=== PATIENT | male | born 1985 | race American Indian/Alaskan Native ===

== ENCOUNTER 2021-11-22 18:45 | Emergency (ER) | payer SELFPAY ==
[2021-11-22] MEDS ORDERED: ONDANSETRON 4 MG/2 ML INJ ONE (18:53)
[2021-11-22] MEDS ORDERED: fentaNYL 100 MCG/2 ML INJ ONE (18:53)
[2021-11-22] MEDS ORDERED: ONDANSETRON 4 MG/2 ML INJ IV ONE (18:54)
[2021-11-22] MEDS ORDERED: fentaNYL 100 MCG/2 ML INJ IV ONE (18:54)
--- NOTE | 2021-11-22 19:31 | Emergency Department Report ---
ED Animal Bite HPI - General Stated Complaint: ATTACKED BY DOGS Time Seen by Provider: 11/22/21 18:53 - History of Present Illness Initial Comments: Patient presents by private auto with his brother secondary to reports of dog bites. He states that he was behind a local grocery store went to pick balls "out of nowhere attacked him." He states that he did not see them coming. Patient is complaining of severe right arm pain. He has multiple small puncture wounds to both forearms. There are scratches and abrasions to both forearms. He states that these were done by pitbull's that attacked him out of the blue. He states that he tried to fight back, but "they won." His brother states that he was called with his brother being attacked" screaming on the phone." He was brought here by private auto for further evaluation. Patient has other in juries. He states that everything happened so quickly, he does not know really how everything played out. - Related Data Previous Rx's Medication Instructions Recorded Last Taken Type Ibuprofen [Motrin] 800 mg PO Q8HR PRN #30 tablet 11/22/21 Unknown Rx cephALEXin [Keflex] 500 mg PO Q8HR #21 cap 11/22/21 Unknown Rx ED Review of Systems ROS: Stated complaint: ATTACKED BY DOGS Other details as noted in HPI Comment: All other systems reviewed and negative Constitutional: no symptoms reported Eyes: eye pain (Right. He has a black eye currently) ENT: denies: throat pain Respiratory: denies: cough Cardiovascular: denies: chest pain Endocrine: denies: unexplained weight loss Gastrointestinal: denies: abdominal pain Genitourinary: denies: dysuria Musculoskeletal: denies: back pain Skin: denies: rash Neurological: denies: headache Hematological/Lymphatic: denies: easy bruising ED Past Medical Hx - Past Medical History Previous Medical History?: No - Family History Family history: no significant - Medications Home Medications: Home Medications Medication Instructions Recorded Confirmed Last Taken Type Ibuprofen [Motrin] 800 mg PO Q8HR PRN #30 tablet 11/22/21 Unknown Rx cephALEXin [Keflex] 500 mg PO Q8HR #21 cap 11/22/21 Unknown Rx ED Physical Exam - General Limitations: No Limitations, Other (Pulse ox noted and normal) General appearance: alert, in distress (Moderate) - Head Head exam: Present: other (Patient has right periorbital contusion with ecchymoses. Right eye is swollen shut. There are superficial abrasions to the right cheek, zygoma, mandible, and neck) - Eye Eye exam: Present: EOMI. Absent: scleral icterus - ENT ENT exam: Present: normal orophraynx, normal external ear exam - Neck Neck exam: Present: other (Superficial abrasions to the right lateral neck). Absent: tenderness, meningismus - Respiratory Respiratory exam: Present: normal lung sounds bilaterally. Absent: respiratory distress - Cardiovascular Cardiovascular Exam: Present: regular rate, normal rhythm - GI/Abdominal GI/Abdominal exam: Present: soft. Absent: distended, tenderness - Extremities Exam Extremities exam: Present: tenderness (Diffuse. There is a skin tear to the dorsum of the right mid forearm consistent with a bite), normal capillary refill, other (Patient has multiple puncture wounds to both forearms. Right is greater than left. There is edema to the right forearm. Patient has good radial pulses. There is no evidence of injury to the lower extremities.). Absent: calf tenderness - Back Exam Back exam: Absent: CVA tenderness (R), CVA tenderness (L) - Neurological Exam Neurological exam: Present: alert, oriented X3, CN II-XII intact, reflexes normal. Absent: motor sensory deficit - Psychiatric Psychiatric exam: Present: normal affect, normal mood - Skin Skin exam: Present: warm, dry ED Course - Reevaluation(s) Reevaluation #1: 11/22/21 19:27 Patient had been seen upon arrival. He was taken urgently to a room. He was undressed. IV was established. He was given analgesics and antibiotics. He was taken to x-ray. There is no evidence of thoracoabdominal injury. He has no altered mental status. He has no neurologic symptom or deficit that can be delineated. He has limited movement of the right arm secondary to pain at this time. Clinically, his wounds do not seem to fit with a dog attack. 11/22/21 19:31 Reevaluation #2: 11/22/21 20:38 CT and radiographs are noted. Wounds will be cleaned and the patient will be discharged. Tetanus booster was ordered. Reevaluation #3: 11/22/21 20:38 Patient had presented with reports of dog bites to both forearms. He had a contusion to the right periorbital area. He did not have any laceration that would warrant suture repair. Radiographically, there was no evidence of acute fracture. He did not have any obvious foreign bodies. He was treated symptomatically. He was placed on antibiotics empirically. He was given a tetanus booster. Patient was referred to primary care for follow-up. He only had 1 skin tear despite reporting being attacked by 2 pit bulls. Whether this was the case is somewhat hard to discern. Critical Care Time: No Critical care attestation.: If time is entered above; I have spent that time in minutes in the direct care of this critically ill patient, excluding procedure time. ED Disposition Clinical Impression: History of dog bite Abrasion of right forearm Qualifiers: Encounter type: initial encounter Qualified Code(s): S50.811A - Abrasion of right forearm, initial encounter Abrasion of left forearm Qualifiers: Encounter type: initial encounter Qualified Code(s): S50.812A - Abrasion of left forearm, initial encounter Facial abrasion Qualifiers: Encounter type: initial encounter Qualified Code(s): S00.81XA - Abrasion of other part of head, initial encounter Neck abrasion Qualifiers: Encounter type: initial encounter Qualified Code(s): S10.91XA - Abrasion of unspecified part of neck, initial encounter Periorbital contusion of right eye Qualifiers: Encounter type: initial encounter Qualified Code(s): S05.11XA - Contusion of eyeball and orbital tissues, right eye, initial encounter Disposition: 01 HOME / SELF CARE / HOMELESS Is pt being admited?: No Condition: Stable Instructions: How to Use Cold Therapy, [id number], Eye Contusion, [id number], Wound Care, Adult, Abrasion, [id number] Additional Instructions: Ice and elevate the arms. Keep the wounds clean. Return for problems. Take the antibiotics. Follow-up with your family doctor or the referral doctor for recheck. Prescriptions: cephALEXin [Keflex] 500 mg PO Q8HR #21 cap Ibuprofen [Motrin] 800 mg PO Q8HR PRN #30 tablet PRN Reason: Pain , Severe (7-10) Referrals: PRIMARY MD CASSIE [Referring] - 3-5 Days MARICHUY HERNANDES MD [Staff Physician] - 3-5 Days
--- NOTE | 2021-11-22 19:38 | Cat Scan Report ---
CT MAXILLOFACIAL WITHOUT CONTRAST INDICATION / CLINICAL INFORMATION: trauma. TECHNIQUE: All CT scans at this location are performed using CT dose reduction for ALARA by means of automated e xposure control. COMPARISON: None available. FINDINGS: FACIAL BONES: There is prominent right periorbital soft tissue hematoma. However, there is no clear C T evidence of acute fracture of the facial bones. The orbital busch, sinuses and zygomatic arches stephanie ear intact. The paranasal sinuses are pneumatized without air-fluid levels. PARANASAL SINUSES: There is mild deviation of the nasal septum toward the left. The mastoid air cells are also clear. ORBITS: The optic globes appear to demonstrate appropriate size and configuration. No significant pos t septal inflammatory changes are identified. ADDITIONAL FINDINGS: None. IMPRESSION: 1. There is notable right periorbital hematoma without clear CT evidence of acute fracture of the f acial bones. Signer Name: Rajan Morin MD Signed: 11/22/2021 7:34 PM Workstation Name: [id number]
[2021-11-22 20:05] LABS: BUN/Creatinine Ratio 10; Blood Urea Nitrogen 12 mg/dL (9-20); Calcium 9.8 mg/dL (8.4-10.2); Hemolysis Index 16
--- NOTE | 2021-11-22 20:57 | XRay Report ---
BILATERAL FOREARM 4 VIEW(S) INDICATION / CLINICAL INFORMATION: dog attack COMPARISON: None available. FINDINGS: BONES / JOINT(S): No acute fracture or subluxation. No significant arthritis. SOFT TISSUES: Soft tissue wound over the dorsal aspect of the right midforearm. ADDITIONAL FINDINGS: None. Signer Name: Rudi Ruiz MD Signed: 11/22/2021 8:53 PM Workstation Name: [id number]
[2021-11-22] MEDS ORDERED: TETANUS,DIPH,PERTUSS(ACELL) VACCINE 0.5 ML SYRINGE IM ONE (23:20)
[2021-11-22] MEDS ORDERED: KETOROLAC 30 MG/1 ML INJ IV ONE (23:21)
[2021-11-22] MEDS ORDERED: SODIUM CHLORIDE 0.9% 1000 ML 1,000 ML IV ONE (23:30)
[2021-11-23 01:01] VITALS: BP 121/75
== END 2021-11-23 00:47 | disposition home or self-care (01) ==
LOC: ED 18:45
DX: S05.11XA Contusion of eyeball and orbital tissues, right eye, initial encounter (principal); S50.812A Abrasion of left forearm, initial encounter; S10.91XA Abrasion of unspecified part of neck, initial encounter; W54.0XXA Bitten by dog, initial encounter; Y93.89 Activity, other specified; Y92.89 Other specified places as the place of occurrence of the external cause; Y99.8 Other external cause status
CPT/HCPCS: 36415; 70486; 73090; 80048; 90471; 90715; 96365; 96375; 99284; J0690; J1885; J2405; J3010; J7030; Q0162